=== PATIENT | female | born 1970 | race Caucasian/White ===

== ENCOUNTER 2017-03-24 09:41 | Emergency (ER) | payer OTHER, BC ==
--- NOTE | 2017-03-24 10:13 | EDM.PDOC ---
ED HPI GENERAL MEDICAL PROBLEM - General Chief Complaint: Lower Extremity Injury/Pain Stated Complaint: INJURY TOE ON RT FOOT Time Seen by Provider: 03/24/17 10:02 - History of Present Illness INITIAL COMMENTS - FREE TEXT/NARRATIVE: HISTORY AND PHYSICAL: History of present illness: Patient is 46-year-old white female presents with a concern of acute injury to the first digit of her right foot when she dropped a fan on it prior to arrival she denies other trauma or concern Review of systems: As per history of present illness and below otherwise all systems reviewed and negative. Past medical history: As per history of present illness and as reviewed below otherwise noncontributory. Surgical history: As per history of present illness and as reviewed below otherwise noncontributory. Social history: No reported history of drug or alcohol abuse. Family history: As per history of present illness and as reviewed below otherwise noncontributory. Physical exam: HEENT: Atraumatic, normocephalic, pupils reactive, negative for conjunctival pallor or scleral icterus, mucous membranes moist, throat clear, neck supple, nontender, trachea midline. Lungs: Clear to auscultation, breath sounds equal bilaterally, chest nontender. Heart: S1S2, regular, negative for clicks, rubs, or JVD. Abdomen: Soft, nondistended, nontender. Negative for masses or hepatosplenomegaly. Negative for costovertebral tenderness. Pelvis: Stable nontender. Genitourinary: Deferred. Rectal: Deferred. Extremities: Patient has some tenderness to the dorsal aspect of the first digit there is no crepitation no gross deformity seen mass neurovascular are unremarkable Neuro: Awake, alert, oriented. Cranial nerves II through XII unremarkable. Cerebellum unremarkable. Motor and sensory unremarkable throughout. Exam nonfocal. Diagnostics: X-ray right foot Therapeutics: To be determined Impression: #1 acute injury right foot (first digit blunt force trauma) Definitive disposition and diagnosis as appropriate pending reevaluation and review of above. R Great Toe Pain Score (Numeric/FACES): 8 - Related Data Allergies Allergy/AdvReac Type Severity Reaction Status Date / Time No Known Allergies Allergy Verified 03/24/17 10:06 Home Meds: Home Meds . [No Known Home Meds] 03/24/17 [History] Past Medical History - Past Health History Medical/Surgical History: Denies Medical/Surgical History Social & Family History - Family History Family Medical History: Noncontributory - Tobacco Use Smoking Status *Q: Never Smoker Second Hand Smoke Exposure: No - Caffeine Use Caffeine Use: Reports: None - Recreational Drug Use Recreational Drug Use: No Review of Systems - Review of Systems Review Of Systems: ROS reveals no pertinent complaints other than HPI. ED EXAM, GENERAL - Physical Exam Exam: See Below (See dictation) Course - Vital Signs Last Recorded V/S: Last Vital Signs Temp 36.3 C 03/24/17 10:03 Pulse 70 03/24/17 10:03 Resp 18 03/24/17 10:03 BP 170/81 H 03/24/17 10:03 Pulse Ox 99 03/24/17 10:03 - Orders/Labs/Meds Orders: Active Orders 24 hr Category Date Time Status Toes Great Toe Rt T5 [CR] Stat Exams 03/24/17 10:11 Taken Departure - Departure Time of Disposition: 10:56 Disposition: Home, Self-Care 01 Condition: Good Clinical Impression: Foot injury - Discharge Information Referrals: Nimisha Santos NP [Primary Care Provider] - Forms: ED Department Discharge Additional Instructions: The following information is given to patients seen in the emergency department who are being discharged to home. This information is to outline your options for follow-up care. We provide all patients seen in our emergency department with a follow-up referral. The need for follow-up, as well as the timing and circumstances, are variable depending upon the specifics of your emergency department visit. If you don't have a primary care physician on staff, we will provide you with a referral. We always advise you to contact your personal physician following an emergency department visit to inform them of the circumstance of the visit and for follow-up with them and/or the need for any referrals to a consulting specialist. The emergency department will also refer you to a specialist when appropriate. This referral assures that you have the opportunity for followup care with a specialist. All of these measure are taken in an effort to provide you with optimal care, which includes your followup. Under all circumstances we always encourage you to contact your private physician who remains a resource for coordinating your care. When calling for followup care, please make the office aware that this follow-up is from your recent emergency room visit. If for any reason you are refused follow-up, please contact the [facility] emergency department at and asked to speak to the emergency department charge nurse. Follow-up primary medical doctor 1-2 days Motrin/Tylenol as directed postop shoe as directed crutches when necessary return as needed as discussed - My Orders Last 24 Hours: My Active Orders 03/24/17 10:11 Toes Great Toe Rt T5 [CR] Stat - Assessment/Plan Last 24 Hours: My Active Orders 03/24/17 10:11 Toes Great Toe Rt T5 [CR] Stat
--- NOTE | 2017-03-24 10:59 | CR ---
EXAMINATION: Right great toe HISTORY: Pain COMPARISON: None TECHNIQUE: 3 views FINDINGS: There is no acute osseous abnormality, dislocation, or fracture. Mild soft tissue swelling adjacent to the first MTP joint. Bone mineralization is otherwise normal. No foreign body. IMPRESSION: No acute osseous abnormality identified.
[2017-03-24 11:12] VITALS: BP 148/78
== END 2017-03-24 11:07 | disposition home or self-care (01) ==
LOC: MW.ED 09:41
DX: S99.921A Unspecified injury of right foot, initial encounter (principal); W20.8XXA Other cause of strike by thrown, projected or falling object, initial encounter
CPT/HCPCS: 73660-26-T5; 73660-T5; 99282; 99283

== ENCOUNTER 2019-03-30 20:29 | Emergency (ER) | payer BC, OTHER ==
[2019-03-30] MEDS ORDERED: methylPREDNISolone Sodium Succinate 125 MG/2 ML SDV IM ONE (20:51)
[2019-03-30] MEDS ORDERED: Albuterol/Ipratropium 3.0-0.5 MG/3 ML Neb Soln NEB ONE (20:51)
--- NOTE | 2019-03-30 20:53 | EDM.PDOC ---
ED HPI GENERAL MEDICAL PROBLEM - General Chief Complaint: Respiratory Problem Stated Complaint: COUGHING Time Seen by Provider: 03/30/19 20:51 Source of Information: Reports: Patient - History of Present Illness INITIAL COMMENTS - FREE TEXT/NARRATIVE: HISTORY AND PHYSICAL: History of present illness: [Patient has had upper respiratory symptoms over the last week turning into a cough and now somewhat short of breath and wheezy no fever nausea vomiting chills sweats ] Review of systems: As per history of present illness and below otherwise all systems reviewed and negative. Past medical history: As per history of present illness and as reviewed below otherwise noncontributory. Surgical history: As per history of present illness and as reviewed below otherwise noncontributory. Social history: No reported history of drug or alcohol abuse. Family history: As per history of present illness and as reviewed below otherwise noncontributory. Physical exam: HEENT: Atraumatic, normocephalic, pupils reactive, negative for conjunctival pallor or scleral icterus, mucous membranes moist, throat clear, neck supple, nontender, trachea midline. As tenderness right greater than left maxillary sinuses Lungs: Clear to auscultation, breath sounds equal bilaterally, chest nontender. as DuoNeb and Solu-Medrol prior she did have wheeze on the right Heart: S1S2, regular, negative for clicks, rubs, or JVD. Abdomen: Soft, nondistended, nontender. Negative for masses or hepatosplenomegaly. Negative for costovertebral tenderness. Pelvis: Stable nontender. Genitourinary: Deferred. Rectal: Deferred. Extremities: Atraumatic, negative for cords or calf pain. Neurovascular unremarkable. Neuro: Awake, alert, oriented. Cranial nerves II through XII unremarkable. Cerebellum unremarkable. Motor and sensory unremarkable throughout. Exam nonfocal. Diagnostics: [Chest 2 view ] Therapeutics: [DuoNeb Solu-Medrol Levaquin Prednisone HFA : bronchitis/snusitis Definitive disposition and diagnosis as appropriate pending reevaluation and review of above. Left Ear Pain Score (Numeric/FACES): 2 - Related Data Allergies Allergy/AdvReac Type Severity Reaction Status Date / Time No Known Allergies Allergy Verified 03/30/19 20:45 Home Meds: Home Meds . 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: Musculoskeletal History: Reports: None Neurological History: Reports: None Psychiatric History: Reports: None Endocrine/Metabolic History: Reports: None Hematologic History: Reports: None Immunologic History: Reports: None Dermatologic History: Reports: None - Infectious Disease History Infectious Disease History: Reports: Chicken Pox, Shingles - Past Surgical History Head Surgeries/Procedures: Reports: None GI Surgical History: Reports: Appendectomy Female Surgical History: Reports: Section Social & Family History - Family History Family Medical History: Noncontributory - Tobacco Use Smoking Status *Q: Former Smoker Used Tobacco, but Quit: Yes Month/Year Tobacco Last Used: 2002 - Caffeine Use Caffeine Use: Reports: None - Recreational Drug Use Recreational Drug Use: No ED ROS GENERAL - Review of Systems Review Of Systems: See Below ED EXAM, GENERAL - Physical Exam Exam: See Below Course - Vital Signs Last Recorded V/S: Last Vital Signs Temp 97.1 F 03/30/19 20:41 Pulse 72 03/30/19 20:41 Resp 20 03/30/19 20:41 BP 170/66 H 03/30/19 20:41 Pulse Ox 97 03/30/19 20:41 - Orders/Labs/Meds Orders: Active Orders 24 hr Category Date Time Status RT Aerosol Therapy [RC] ASDIRECTED Care 03/30/19 20:51 Active Chest 2V [CR] Stat Exams 03/30/19 20:40 Taken Meds: Medications Discontinued Medications Generic Name Dose Route Start Last Admin Trade Name Daniel PRN Reason Stop Dose Admin Albuterol/Ipratropium 3 ml 03/30/19 20:51 03/30/19 21:31 Duoneb 3.0-0.5 Mg/3 Ml NEB 03/30/19 20:52 3 ml ONETIME ONE Administration Methylprednisolone Sodium Succinate 125 mg 03/30/19 20:51 03/30/19 21:29 Solu-Medrol IM 03/30/19 20:52 125 mg ONETIME ONE Administration Departure - Departure Time of Disposition: 22:00 Disposition: Home, Self-Care 01 Condition: Good Clinical Impression: Sinusitis, Bronchitis, Infiltrate of lung present on chest x-ray - Discharge Information Referrals: PCP,None [Primary Care Provider] - Forms: ED Department Discharge Additional Instructions: Medication as prescribed Return symptoms persist or worsen Follow-up with primary care in 2 weeks sooner as needed [facility] - Primary Care [address] [place] [id number] The following information is given to patients seen in the emergency department who are being discharged to home. This information is to outline your options for follow-up care. We provide all patients seen in our emergency department with a follow-up referral. The need for follow-up, as well as the timing and circumstances, are variable depending upon the specifics of your emergency department visit. If you don't have a primary care physician on staff, we will provide you with a referral. We always advise you to contact your personal physician following an emergency department visit to inform them of the circumstance of the visit and for follow-up with them and/or the need for any referrals to a consulting specialist. The emergency department will also refer you to a specialist when appropriate. This referral assures that you have the opportunity for follow-up care with a specialist. All of these measure are taken in an effort to provide you with optimal care, which includes your follow-up. Under all circumstances we always encourage you to contact your private physician who remains a resource for coordinating your care. When calling for follow-up care, please make the office aware that this follow-up is from your recent emergency room visit. If for any reason you are refused follow-up, please contact the [facility] emergency department at and asked to speak to the emergency department charge nurse. - My Orders Last 24 Hours: My Active Orders 03/30/19 20:40 Chest 2V [CR] Stat 03/30/19 20:51 RT Aerosol Therapy [RC] ASDIRECTED - Assessment/Plan Last 24 Hours: My Active Orders 03/30/19 20:40 Chest 2V [CR] Stat 03/30/19 20:51 RT Aerosol Therapy [RC] ASDIRECTED
[2019-03-30] MEDS ORDERED: Levofloxacin 500 MG Tab PO ONE (22:01)
--- NOTE | 2019-03-30 22:10 | CR ---
Indication: Chest pain and shortness of breath Technique: Chest 2 views Comparison: None Findings: Cardiovascular and mediastinum: Heart size and vasculature are normal in caliber and appearance. Lungs and pleural spaces: Ill-defined opacity is seen in the right infrahilar region on the PA image. Lungs and pleural spaces are otherwise clear. Bones and soft tissues: No significant findings. Impression: Nonspecific opacity in the right infrahilar region is seen on the PA image only. Pneumonia is possible, however this is not verified on the lateral image. This could also represent crowding of vascular structures. Short-term follow-up chest x-ray should be obtained if there is ongoing concern for pulmonary disease. Dictated by Brendan Aguilar MD @ Mar 30 2019 10:07PM Signed by Dr. Brendan Aguilar @ Mar 30 2019 10:09PM
[2019-03-30 23:23] VITALS: BP 175/75
== END 2019-03-30 22:15 | disposition home or self-care (01) ==
LOC: MW.ED 20:29
DX: J32.9 Chronic sinusitis, unspecified (principal); J40 Bronchitis, not specified as acute or chronic; R91.8 Other nonspecific abnormal finding of lung field; Z90.49 Acquired absence of other specified parts of digestive tract; Z87.891 Personal history of nicotine dependence
CPT/HCPCS: 71046; 94640; 96372; 99283; A9270; J2930; J7620-GY

== ENCOUNTER 2020-05-30 20:15 | Emergency (ER) | payer BC ==
--- NOTE | 2020-05-30 21:31 | CR ---
Indication: Jammed hand Technique: Two views of the left hand Comparison: None Findings: No fracture is demonstrated. The joints are anatomically aligned. There is no significant soft tissue edema. Impression: No acute abnormality. Dictated by Marilu Moon MD @ May 30 2020 9:30PM Signed by Dr. Marilu Moon @ May 30 2020 9:31PM
--- NOTE | 2020-05-30 21:40 | EDM.PDOC ---
ED HPI GENERAL MEDICAL PROBLEM - General Chief Complaint: Upper Extremity Injury/Pain Stated Complaint: FELLED ON LEFT HAND Time Seen by Provider: 05/30/20 20:17 Source of Information: Reports: Patient History Limitations: Reports: No Limitations - History of Present Illness INITIAL COMMENTS - FREE TEXT/NARRATIVE: Presents reporting that she fell this evening when she stepped on uneven ground and tripped. She jammed her fingers while breaking her fall with her left hand. Then she has pain in her second and third fingers and is unable to move them. She can feel pressure but sensation is altered as well. left hand Pain Score (Numeric/FACES): 8 - Related Data Allergies Allergy/AdvReac Type Severity Reaction Status Date / Time No Known Allergies Allergy Verified 05/30/20 20:41 Home Meds: Home Meds . 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 Musculoskeletal History: Reports: None Neurological History: Reports: None Psychiatric History: Reports: None Endocrine/Metabolic History: Reports: None Hematologic History: Reports: None Immunologic History: Reports: None Dermatologic History: Reports: None - Infectious Disease History Infectious Disease History: Reports: Chicken Pox - Past Surgical History Head Surgeries/Procedures: Reports: None GI Surgical History: Reports: Appendectomy Female Surgical History: Reports: Section Social & Family History - Family History Family Medical History: Noncontributory - Tobacco Use Tobacco Use Status *Q: Never Tobacco User - Caffeine Use Caffeine Use: Reports: None - Recreational Drug Use Recreational Drug Use: No Review of Systems - Review of Systems Review Of Systems: Comprehensive ROS is negative, except as noted in HPI. ED EXAM, GENERAL - Physical Exam Exam: See Below General Appearance: Alert, No Apparent Distress Ears: Normal External Exam Nose: Normal Inspection Throat/Mouth: Normal Inspection Head: Atraumatic, Normocephalic Neck: Normal Inspection Respiratory/Chest: No Respiratory Distress Cardiovascular: Normal Peripheral Pulses Extremities: Other (Left hand no deformity crepitus full range of motion of the left elbow and wrist thumb fourth and fifth fingers. Full to move second and third digits. Second and third digits with soft compartments, ecchymosis, mild swelling, brisk capillary refill.) Neurological: Alert, Oriented, Normal Cognition Psychiatric: Normal Affect, Normal Mood Skin Exam: Warm, Dry, Intact, Normal Color, No Rash Lymphatic: No Adenopathy Course - Vital Signs Last Recorded V/S: Last Vital Signs Temp 36.2 C 05/30/20 20:47 Pulse 86 05/30/20 20:42 Resp 17 05/30/20 20:42 BP 184/96 H 05/30/20 20:42 Pulse Ox 96 05/30/20 20:42 - Re-Assessments/Exams Free Text/Narrative Re-Assessment/Exam: 05/30/20 21:43 Dr. Rodriguez evaluated left hand. Departure - Departure Time of Disposition: 21:44 Disposition: Home, Self-Care 01 Condition: Good Clinical Impression: Jammed finger (interphalangeal joint) Qualifiers: Encounter type: initial encounter Laterality: left Qualified Code(s): S69.92XA - Unspecified injury of left wrist, hand and finger(s), initial encounter - Discharge Information Referrals: Amanda Cronin NP [Primary Care Provider] - Ambreen Levine [Ordering Only Provider] - Diego Perez MD [Ordering Only Provider] - Additional Instructions: The following information is given to patients seen in the emergency department who are being discharged to home. This information is to outline your options for follow-up care. We provide all patients seen in our emergency department with a follow-up referral. The need for follow-up, as well as the timing and circumstances, are variable depending upon the specifics of your emergency department visit. If you don't have a primary care physician on staff, we will provide you with a referral. We always advise you to contact your personal physician following an emergency department visit to inform them of the circumstance of the visit and for follow-up with them and/or the need for any referrals to a consulting specialist. The emergency department will also refer you to a specialist when appropriate. This referral assures that you have the opportunity for follow-up care with a specialist. All of these measure are taken in an effort to provide you with optimal care, which includes your follow-up. Under all circumstances we always encourage you to contact your private physician who remains a resource for coordinating your care. When calling for follow-up care, please make the office aware that this follow-up is from your recent emergency room visit. If for any reason you are refused follow-up, please contact the [facility] Emergency Department at and asked to speak to the emergency department charge nurse. 1. Cool pack 20 minutes every 3 hours 2. Wear splint until cleared by primary provider or hand surgeon 3. If you are not able to move the second and third fingers of the left hand, call hand surgeon tomorrow morning at numbers provided above. 4. Return promptly for cool, pale fingers or hand. Sepsis Event Note (ED) - Evaluation Sepsis Screening Result: No Definite Risk - Focused Exam Vital Signs: Vital Signs Temp Pulse Resp BP Pulse Ox 05/30/20 20:47 36.2 C 05/30/20 20:42 86 17 184/96 H 96
[2020-05-30 23:25] VITALS: BP 178/88; PULSE 78
== END 2020-05-30 22:30 | disposition home or self-care (01) ==
LOC: MW.ED 20:15
DX: S60.022A Contusion of left index finger without damage to nail, initial encounter (principal); S60.032A Contusion of left middle finger without damage to nail, initial encounter; W23.0XXA Caught, crushed, jammed, or pinched between moving objects, initial encounter
CPT/HCPCS: 29125; 73120-26-LT; 73120-LT; 99283; 99283-25

== ENCOUNTER 2021-06-21 18:45 | Emergency (ER) | payer BC ==
[2021-06-21] MEDS ORDERED: Acetaminophen/HYDROcodone 325-5 MG Tab PO ONE (19:00)
--- NOTE | 2021-06-21 19:08 | EDM.PDOC ---
ED HPI GENERAL MEDICAL PROBLEM - General Chief Complaint: Lower Extremity Injury/Pain Stated Complaint: RT FOOT SHARP PAIN Time Seen by Provider: 06/21/21 18:47 Source of Information: Reports: Patient History Limitations: Reports: No Limitations - History of Present Illness INITIAL COMMENTS - FREE TEXT/NARRATIVE: HISTORY AND PHYSICAL: History of present illness: Patient is a 50-year-old female who presents to the emergency room with complaints of right heel pain. She states it is worse in the morning last week but over the past few days it has been constant. He denies any injury, trauma or falls. She denies any numbness, tingling, saddle paresthesia or weakness of the extremity. Patient denies any fever, chills, headache, change in vision, syncope or near syncope. Denies any chest pain, back pain, shortness of breath or cough. Denies any GI or symptoms. No recent travel or sick contacts. Review of systems: As per history of present illness and below otherwise all systems reviewed and negative. Past medical history: As per history of present illness and as reviewed below otherwise noncontributory. Surgical history: As per history of present illness and as reviewed below otherwise noncontributory. Social history: See social history for further information Family history: As per history of present illness and as reviewed below otherwise noncontr ibutory. Physical exam: General: Well developed and well nourished 50-year-old female. Alert and orientated x 3. Nontoxic in appearance and in no acute distress. Vital signs are stable and have been reviewed by me. Nursing notes were reviewed. HEENT: Atraumatic, normocephalic, pupils equal and reactive bilaterally, negative for conjunctival pallor or scleral icterus, mucous membranes moist, trachea midline. No drooling or trismus noted. No meningeal signs. No hot potato voice noted. Lungs: Clear to auscultation bilaterally. No wheezes, rales, or rhonchi. Chest nontender. Normal work of breathing, no accessory muscles used. Heart: S1S2, regular rate and rhythm without overt murmur, gallops, or rubs. No JVD. No peripheral edema Abdomen: Soft, nondistended, nontender. Skin: Intact, warm, dry. No lesions or rashes noted. Hematologic: No petechiae or purpra. Mucosa appropriate color and normal nail bed color and refill. Extremities: Atraumatic, moves all extremities per self without difficulty or deficits, pain with palpation of the right calcaneal tuberosity. She is negative for cords or calf pain. Strong pedal and pretibial pulses. Cap refill less than 2 seconds. Neurovascular unremarkable. Neuro: Awake, alert, oriented. Cranial nerves II through XII unremarkable. Cerebellum unremarkable. Motor and sensory unremarkable throughout. Exam nonfocal. Psychiatric: Mood and affect are appropriate. Normal thought process. Answering questions appropriately. Please note that the patient was seen and evaluated during the 2019 SARS-CoV-2 novel coronavirus pandemic period. Community viral transmission is ongoing at time of this encounter and the emergency department is operating under pandemic response procedures. Medical Decision Making: Patient is a 50-year-old female who presents with right heel pain over the past 1 week. Findings are consistent with plantar fasciitis. Will obtain a calcaneus x-ray to rule out any other causes. Patient is in moderate pain I will give her a tablet of Carmel at this time. X-ray shows no fractures, significant or suspicious osseous lesions. A plantar spur is present. Spurring is noted along the Achilles tendon insertion. Mild joint space narrowing in the mid foot. I have talked with the patient about today's findings, in addition to providing specific details for plan of care. Reassessment at the time of disposition demonstrates that the patient is in no acute distress. The patient is stable for discharge, counseling was provided and we discussed in great detail signs and symptoms that would prompt them to return to the Emergency Department. Medication, follow up and supportive care measures were reviewed and discussed. Voices understanding and is agreeable to plan of care. Denies any further questions or concerns at this time. Diagnostics: Heel x-ray Therapeutics: Carmel Prescription: Carmel Impression: Plantar fasciitis, right Plan: 1. You were evaluated today on an emergent basis. Your findings are consistent with plantar fasciitis. This is due to inflammation of the plantar aponeurosis, usually due to overuse. Rest, ice, heel/arch support inserts may be beneficial. I would take NSAIDs routinely over the next few days, take with food to prevent GI upset. 2. You can alternate Tylenol and ibuprofen as needed for pain and fever management. 3. We encourage you to follow up with your primary care provider and/or podiatry in the next few days for re-evaluation and further care/management. 4. If your symptoms should worsen, new symptoms develop or any of the signs and symptoms we discussed should arise please return to the emergency room or call 911 (if needed). Definitive disposition and diagnosis as appropriate pending reevaluation and review of above. Duration: Day(s): Location: Reports: Lower Extremity, Right right heal Pain Score (Numeric/FACES): 10 - Related Data Allergies Allergy/AdvReac Type Severity Reaction Status Date / Time No Known Allergies Allergy Verified 06/21/21 18:59 Home Meds: Home Meds . 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 Musculoskeletal History: Reports: None Neurological History: Reports: None Psychiatric History: Reports: None Endocrine/Metabolic History: Reports: None Hematologic History: Reports: None Immunologic History: Reports: None Dermatologic History: Reports: None - Infectious Disease History Infectious Disease History: Reports: Chicken Pox - Past Surgical History Head Surgeries/Procedures: Reports: None GI Surgical History: Reports: Appendectomy Female Surgical History: Reports: Section Social & Family History - Family History Family Medical History: No Pertinent Family History - Tobacco Use Tobacco Use Status *Q: Never Tobacco User - Caffeine Use Caffeine Use: Reports: None - Recreational Drug Use Recreational Drug Use: No Review of Systems - Review of Systems Review Of Systems: Comprehensive ROS is negative, except as noted in HPI. ED EXAM, GENERAL - Physical Exam Exam: See Below (See dictation) Course - Vital Signs Last Recorded V/S: Last Vital Signs Temp 97.2 F 06/21/21 18:57 Pulse 84 06/21/21 19:34 Resp 18 06/21/21 18:57 BP 182/87 H 06/21/21 19:34 Pulse Ox 98 06/21/21 19:34 - Orders/Labs/Meds Meds: Medications Discontinued Medications Generic Name Dose Route Start Last Admin Trade Name Freq PRN Reason Stop Dose Admin Hydrocodone Bitart/Acetaminophen 1 tab 06/21/21 19:00 06/21/21 19:06 Acetaminophen/Hydrocodone 325-5 Mg Tab PO 06/21/21 19:01 1 tab ONETIME ONE Administration Departure - Departure Time of Disposition: 19:09 Disposition: Home, Self-Care 01 Clinical Impression: Plantar fasciitis - Discharge Information Instructions: Plantar Fasciitis Referrals: PCP,None [Primary Care Provider] - Forms: ED Department Discharge Additional Instructions: The following information is given to patients seen in the emergency department who are being discharged to home. This information is to outline your options for follow-up care. We provide all patients seen in our emergency department with a follow-up referral. The need for follow-up, as well as the timing and circumstances, are variable depending upon the specifics of your emergency department visit. If you don't have a primary care physician on staff, we will provide you with a referral. We always advise you to contact your personal physician following an emergency department visit to inform them of the circumstance of the visit and for follow-up with them and/or the need for any referrals to a consulting specialist. The emergency department will also refer you to a specialist when appropriate. This referral assures that you have the opportunity for follow-up care with a specialist. All of these measure are taken in an effort to provide you with optimal care, which includes your follow-up. Under all circumstances we always encourage you to contact your private physician who remains a resource for coordinating your care. When calling for follow-up care, please make the office aware that this follow-up is from your recent emergency room visit. If for any reason you are refused follow-up, please contact the [facility] Emergency Department at and asked to speak to the emergency department charge nurse. [facility] [address] [place] [address] [id number] [address] [address] Thank you for choosing the [facility] emergency department in [place] for your medical needs today. It was a pleasure caring for you. Today you were seen in the emergency department for heel pain 1. You were evaluated today on an emergent basis. Your findings are consistent with plantar fasciitis. This is due to inflammation of the plantar aponeurosis, usually due to overuse. Rest, ice, heel/arch support inserts may be beneficial. I would take NSAIDs routinely over the next few days, take with food to prevent GI upset. 2. You can alternate Tylenol and ibuprofen as needed for pain and fever management. 3. We encourage you to follow up with your primary care provider and/or podiatry in the next few days for re-evaluation and further care/management. 4. If your symptoms should worsen, new symptoms develop or any of the signs and symptoms we discussed should arise please return to the emergency room or call 911 (if needed). Sepsis Event Note (ED) - Evaluation Sepsis Screening Result: No Definite Risk - Focused Exam Vital Signs: Vital Signs Temp Pulse Resp BP Pulse Ox 06/21/21 19:34 84 182/87 H 98 06/21/21 18:57 97.2 F 84 18 206/100 H 98
--- NOTE | 2021-06-21 19:46 | CR ---
INDICATION: Pain. TECHNIQUE: Right calcaneus axial and lateral views. IMPRESSION: No fractures, significant or suspicious osseous lesions. A plantar spur is present. Spurring is noted along the Achilles tendon insertion. Mild joint space narrowing in the mid foot. Dictated by Fawad Mattson MD @ 06/21/2021 7:45:22 PM (Electronically Signed)
[2021-06-21 22:34] VITALS: BP 173/85; PULSE 76
== END 2021-06-21 20:19 | disposition home or self-care (01) ==
LOC: MW.ED 18:45
DX: M72.2 Plantar fascial fibromatosis (principal)
CPT/HCPCS: 73650; 99283; A9270

== ENCOUNTER 2021-11-24 07:31 | Emergency (ER) | payer BC ==
[2021-11-24 07:39] VITALS: BP 155/84
[2021-11-24] MEDS ORDERED: Ibuprofen 600 MG Tab PO ONE (08:05)
[2021-11-24] MEDS ORDERED: Azithromycin 250 MG Tab PO ONE (08:05)
[2021-11-24 08:33] VITALS: PULSE 79
== END 2021-11-24 08:33 | disposition home or self-care (01) ==
LOC: MW.ED 07:31
DX: J02.0 Streptococcal pharyngitis (principal); Z86.16 Personal history of COVID-19
CPT/HCPCS: 87651; 99283; A9270